=== PATIENT | male | born 1970 | race Caucasian/White ===

== ENCOUNTER 2022-10-27 07:38 | Outpatient (CLI) | payer BC ==
[2022-10-27] MEDS ORDERED: Iopamidol 300 61% 100 ML VIAL FS ONE (09:08)
== END 2022-10-27 07:39 | disposition home or self-care (01) ==
LOC: CSHCT 07:38
PROVIDERS: ATTEND Surgery
DX: R22.1 Localized swelling, mass and lump, neck (principal); D17.0 Benign lipomatous neoplasm of skin and subcutaneous tissue of head, face and neck
CPT/HCPCS: 70491